=== PATIENT | female | born 1955 | race Caucasian/White ===

== ENCOUNTER → 2016-10-10 | Outpatient (CLI) | payer MEDICARE ==
--- NOTE | 2016-10-10 12:28 | RADIOLOGY REPORT PS360 ---
CHEST(2 VIEWS-NOT PORTABLE) HISTORY: Follow-up pneumonia, cough COUGH ORDERING PHYSICIAN: Qing Trimble MD PATIENT AGE: 61 years COMPARISON: To 316 FINDINGS: The cardiomediastinal silhouette and pulmonary vascularity are within normal limits. Linear density is present in the right lung base likely related to an area of atelectasis. The lungs are otherwise clear. No acute bony anomalies. Chronic changes are present in the lingula. IMPRESSION: Chronic change with right basilar atelectasis. No lobar consolidation or collapse
== END ==
LOC: RAD 09:20
DX: R05 Cough (principal)